=== PATIENT | male | born 1975 | race African-American/Black ===

== ENCOUNTER 2023-09-15 14:11 | Observation (INO) | payer OTHER, SELFPAY ==
[2023-09-15] VITALS (26 sets, daily range): BP systolic 123–135; BP diastolic 76–92; PULSE 60–78; TEMP 36.8–37; O2SAT 67–100; BMI 25.0; BMI 22.9
--- NOTE | 2023-09-15 14:29 | CT_ITS ---
The [address] [address] Patient Name: JAMESON STINSON MRN: [id number] date: 1975 Sex: M Assigned Patient Location: ER Current Patient Location: ER Accession/Order Number: [id number] Exam Date: 09/15/2023 14:55 Report Date: 09/15/2023 15:24 At the request of: ROLANDO JOHNS Procedure: CT stroke head/brain wo con EXAMINATION: CT stroke head/brain wo con HISTORY: Headache, confusion COMPARISON: 06/18/2022 TECHNIQUE: Axial CT images were obtained without IV contrast. Dose reduction techniques were achieved by using automated exposure control and/or adjustment of mA and/or kV according to patient size and/or use of iterative reconstruction technique. FINDINGS: BRAIN: Diffuse supratentorial atrophy. Remote left frontal infarct with encephalomalacia best seen on axial image #19. No new parenchymal hemorrhage, mass or attenuation abnormality. CSF SPACES: No hydrocephalus, subarachnoid hemorrhage, or mass. Appropriate for age. SKULL: No fracture, mass, or other significant visible lesion. SINUSES: No significant mucosal thickening or fluid on the limited views. ORBITS: No appreciable abnormality on the limited views. OTHER: Findings relayed to emergency room at 3:[address]/CT stroke head/brain wo con IMPRESSION: No acute intracranial abnormality Electronically authenticated by: ARIANA WILCOX Date: 09/15/2023 15:24
--- NOTE | 2023-09-15 14:30 | ECG_ITS ---
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
[2023-09-15 14:36] LABS: Glucometer 108 mg/dL (74-106)
--- NOTE | 2023-09-15 14:41 | ED_ITS ---
HPI HPI - General Adult General Chief complaint: Neuro Symptoms/Deficit Stated complaint: HEADACHE, CONFUSED/ CVA SYMPTOMS Time Seen by Provider: 09/15/23 14:14 Source: patient Mode of arrival: walk-in Limitations: no limitations History of Present Illness HPI narrative: Patient is a 48-year-old male with a history of hypertension who presents to the emergency department for the evaluation of a frontal headache associated with feeling confused and shaky since yesterday. He states his symptoms improved but returned again today. He states today he has noticed floaters in his vision bi laterally. He continues to have a headache. He feels numbness and tingling in all of his extremities, he states this has been present for the last year but seems to be worse today. He states he had a stroke about 1 year ago and was hospitalized at this facility. Related Data Home Medications ?Medication ?Instructions ?Recorded ?Confirmed amlodipine 5 mg tablet 5 mg PO DAILY 09/15/23 09/15/23 carvedilol 12.5 mg tablet 12.5 mg PO DAILY 09/15/23 09/15/23 Allergies Allergy/AdvReac Type Severity Reaction Status Date / Time No Known Drug Allergies Allergy Verified 09/15/23 14:26 Opioid HPI Opioid Management Most Recent Opioid Data: No Data to Display Exam Constitutional Vital Signs, click to edit/add: Last Vital Signs Temp 98.6 F 09/15/23 14:27 Pulse 66 09/15/23 15:22 Resp 12 09/15/23 15:22 BP 128/87 09/15/23 15:22 Pulse Ox 98 09/15/23 15:22 Course Vital Signs Vital signs: Vital Signs Blood Pressure 126/88 09/15/23 14:26 Temperature 98.6 F 09/15/23 14:27 Pulse Rate 66 09/15/23 15:22 Respiratory Rate 12 09/15/23 15:22 Blood Pressure 128/87 09/15/23 15:22 Pulse Oximetry 98 09/15/23 15:22 Medical Decision Making [facility] Narrative Medical decision making narrative: Patient treated with IV fluids in the ER, he was found to be intoxicated with an ethanol of 99, elevated lactic acid. The remainder of his labs are unremarkable. He was sent for stroke protocol noncontrast CT of the brain as well as CT angio of the head and neck and the studies are unremarkable as well. Blood pressure and vital signs remained stable in the ER. Patient has no complaints of chest pain or shortness of breath. He does have slow speech but no other focal neurodeficits. I discussed the case with Enrique Rivera stroke interventionalists, no indication for any acute transfer to a higher level of care at this time. Patient admitted to hospitalist service for further evaluation and treatment. SUPERVISED APC VISIT, PHYSICIAN ATTESTATION: Based on the medical record the care appears appropriate. ? Medical Records Medical records reviewed: Yes I reviewed the patient's medical records Lab Data Lab results reviewed: Yes I reviewed the patient's lab results Labs: Lab Results 09/15/23 09/15/23 Range/Units 14:34 14:36 WBC 4.9 (4.0-11.0) 10^3/uL RBC 4.46 L (4.70-6.10) 10^6/uL Hgb 14.4 (14.0-18.0) g/dL Hct 41.3 L (42.0-54.0) % MCV 92.6 (80.0-94.0) fL MCH 32.3 (25.9-34.0) pg MCHC 34.9 (29.9-35.2) g/dL RDW 13.2 (11.0-15.0) % Plt Count 351 (150-450) 10^3/uL MPV 8.7 L (9.5-13.5) fL Neut % (Auto) 42.2 L (43.0-75.0) % Lymph % (Auto) 49.5 (20.5-60.0) % [place] % (Auto) 6.7 (1.7-12.0) % Eos % (Auto) 0.6 L (0.9-7.0) % Baso % (Auto) 0.8 (0.2-2.0) % Neut # (Auto) 2.1 (1.4-6.5) 10^3/uL Lymph # (Auto) 2.4 (1.2-3.8) 10^3/uL [place] # (Auto) 0.3 (0.3-0.8) 10^3/uL Eos # (Auto) 0.0 (0.0-0.7) 10^3/uL Baso # (Auto) 0.0 (0.0-0.1) 10^3/uL Abs Immat Gran (auto) 0.01 (0.00-0.03) 10^3/uL Imm/Tot Granulo (auto) 0.2 (0.0-0.5) % ESR 1 (<=15) mm/hr PT 14.0 H (9.0-11.6) sec INR 1.36 Sodium 139 (136-145) mmol/L Potassium 3.5 (3.5-5.1) mmol/L Chloride 105 (98-107) mmol/L Carbon Dioxide 24.3 (21.0-32.0) mmol/L Anion Gap 13.2 BUN 10.0 (7.0-18.0) mg/dL Creatinine 0.77 (0.70-1.30) mg/dL Est GFR ( Amer) >60 (>=60) Est GFR (Non-Af Amer) >60 (>=60) BUN/Creatinine Ratio 13.0 Glucose 100 (74-106) mg/dL Lactate 2.6 H* (0.4-2.0) mmol/L Calcium 8.2 L (8.5-10.1) mg/dL Magnesium 1.8 (1.8-2.4) mg/dL Total Bilirubin 0.5 (0.2-1.0) mg/dL AST 46 H (15-37) U/L ALT 38 (16-63) U/L Alkaline Phosphatase 77 (46-116) U/L Troponin I High Sens 4.5 (4.0-76.1) pg/mL C-Reactive Protein <0.50 (<=0.50) mg/dL Total Protein 6.6 (6.4-8.2) g/dL Albumin 3.0 L (3.4-5.0) g/dL Globulin 3.6 g/dL Albumin/Globulin Ratio 0.8 TSH 0.977 (0.358-3.740) uIU/mL Ethanol Quant 99 mg/dL POC Glucose 108 H (74-106) mg/dL Imaging Data CT scan - head: Attestation: I have reviewed the pertinent imaging results. Radiologist's impression: ITS Impressions Brain CT 09/15/23 14:29 IMPRESSION: No acute intracranial abnormality Electronically authenticated by: ARIANA WILCOX Date: 09/15/2023 15:24 Head CTA 09/15/23 15:05 IMPRESSION: No high-grade or hemodynamically flow-limiting stenosis of the major arteries of the head and neck. Electronically authenticated by: JOSEPH MARTINEZ Date: 09/15/2023 16:00 Neck CTA 09/15/23 15:05 IMPRESSION: No high-grade or hemodynamically flow-limiting stenosis of the major arteries of the head and neck. Electronically authenticated by: JOSEPH MARTINEZ Date: 09/15/2023 16:00 ECG Data Attestation: I personally reviewed and interpreted this ECG as follows: (Normal sinus rhythm at a rate of 78, no acute ST elevation, no ectopy. EKG reviewed by attending physician) Discharge Plan Discharge Chief Complaint: Neuro Symptoms/Deficit Patient Disposition: Admitted as Observation Time of Disposition Decision: 16:39 Prescriptions / Home Meds: No Action carvedilol 12.5 mg tablet 12.5 mg PO DAILY amlodipine 5 mg tablet 5 mg PO DAILY Print Language: Yemeni Referrals: Physician,Non-Staff, MD [Primary Care Provider] - 1 week
[2023-09-15 14:42] LABS: Basophils Percent Auto 0.8 % (0.2-2.0); Eosinophils Percent Auto 0.6 % (0.9-7.0); Hematocrit 41.3 % (42.0-54.0); Hemoglobin 14.4 g/dL (14.0-18.0); Immature Granulocytes Abs Auto 0.01 10^3/uL (0.00-0.03); Immature Granulocytes Pct Auto 0.2 % (0.0-0.5); Lymphocytes Absolute Auto 2.4 10^3/uL (1.2-3.8); Lymphocytes Percent Auto 49.5 % (20.5-60.0); Mean Corpuscular HGB Conc 34.9 g/dL (29.9-35.2); Mean Corpuscular Hemoglobin 32.3 pg (25.9-34.0); Mean Corpuscular Volume 92.6 fL (80.0-94.0); Mean Platelet Volume 8.7 fL (9.5-13.5); Monocytes Absolute Auto 0.3 10^3/uL (0.3-0.8); Monocytes Percent Auto 6.7 % (1.7-12.0); Neutrophils Absolute Auto 2.1 10^3/uL (1.4-6.5); Neutrophils Percent Auto 42.2 % (43.0-75.0); Platelet Count 351 10^3/uL (150-450); Red Blood Count 4.46 10^6/uL (4.70-6.10); Red Cell Distribution Width 13.2 % (11.0-15.0); White Blood Count 4.9 10^3/uL (4.0-11.0)
[2023-09-15] MEDS: 0.9 % SODIUM CHLORIDE 1,000 ML 999 ML IV (14:46)
[2023-09-15 14:51] LABS: Erythrocyte Sedimentation Rate 1 mm/hr (<=15)
[2023-09-15 14:56] LABS: INR 1.36
--- NOTE | 2023-09-15 15:05 | CT_ITS ---
[address] [address] Patient Name: JAMESON STINSON MRN: [id number] date: 1975 Sex: M Assigned Patient Location: ER Current Patient Location: .[facility] Accession/Order Number: [id number] Exam Date: 09/15/2023 14:55 Report Date: 09/15/2023 16:00 At the request of: ROLANDO JOHNS Procedure: CT angio neck CTA HEAD/NECK. HISTORY: Confusion, headache COMPARISON: None. TECHNIQUE: CT angiogram of the head and neck obtained after administration of 75 mL of nonionic intravenous contrast material, Isovue-300. Multiplanar and volume rendered 3-D reformats were created. NASCET criteria was used for evaluation of luminal stenosis. 3-D vascular images were constructed on a separate workstation. FINDINGS: THORACIC AORTA: Normal. There is a normal anatomy at the origin of the great vessels. RIGHT COMMON CAROTID ARTERY: No significant stenosis. RIGHT EXTERNAL CAROTID ARTERY: No significant stenosis. RIGHT INTERNAL CAROTID ARTERY: No significant stenosis. LEFT COMMON CAROTID ARTERY: No significant stenosis. LEFT EXTERNAL CAROTID ARTERY: No significant stenosis. LEFT INTERNAL CAROTID ARTERY: No significant stenosis. RIGHT VERTEBRAL ARTERY: No significant stenosis. LEFT VERTEBRAL ARTERY: No significant stenosis. [place] OF [place]: The bilateral intracranial internal carotid arteries, anterior cerebral arteries, middle cerebral arteries and anterior and posterior communicating arteries are normal. POSTERIOR INTRACRANIAL CIRCULATION: The basilar artery and posterior cerebral arteries are patent, without stenosis or occlusion. DURAL SINUSES: Patent. No intracranial aneurysm measuring least 2 mm identified. No intracranial AVM. LUNG APICES: The lung apices are clear. SOFT TISSUES: The prevertebral soft tissues are normal. No soft tissue inflammation. There are dilated submandibular gland ducts. No evidence of sialoadenitis. OSSEOUS STRUCTURES: No acute osseous abnormality throughout the imaged axial skeleton and skull base. CT/CT angio neck IMPRESSION: No high-grade or hemodynamically flow-limiting stenosis of the major arteries of the head and neck. Electronically authenticated by: JOSEPH MARTINEZ Date: 09/15/2023 16:00
--- NOTE | 2023-09-15 15:05 | CT_ITS ---
[address] [address] Patient Name: JAMESON STINSON MRN: [id number] date: 1975 Sex: M Assigned Patient Location: ER Current Patient Location: [facility] Accession/Order Number: [id number] Exam Date: 09/15/2023 14:55 Report Date: 09/15/2023 16:00 At the request of: ROLANDO JOHNS Procedure: CT angio head CTA HEAD/NECK. HISTORY: Confusion, headache COMPARISON: None. TECHNIQUE: CT angiogram of the head and neck obtained after administration of 75 mL of nonionic intravenous contrast material, Isovue-300. Multiplanar and volume rendered 3-D reformats were created. NASCET criteria was used for evaluation of luminal stenosis. 3-D vascular images were constructed on a separate workstation. FINDINGS: THORACIC AORTA: Normal. There is a normal anatomy at the origin of the great vessels. RIGHT COMMON CAROTID ARTERY: No significant stenosis. RIGHT EXTERNAL CAROTID ARTERY: No significant stenosis. RIGHT INTERNAL CAROTID ARTERY: No significant stenosis. LEFT COMMON CAROTID ARTERY: No significant stenosis. LEFT EXTERNAL CAROTID ARTERY: No significant stenosis. LEFT INTERNAL CAROTID ARTERY: No significant stenosis. RIGHT VERTEBRAL ARTERY: No significant stenosis. LEFT VERTEBRAL ARTERY: No significant stenosis. [place] OF [place]: The bilateral intracranial internal carotid arteries, anterior cerebral arteries, middle cerebral arteries and anterior and posterior communicating arteries are normal. POSTERIOR INTRACRANIAL CIRCULATION: The basilar artery and posterior cerebral arteries are patent, without stenosis or occlusion. DURAL SINUSES: Patent. No intracranial aneurysm measuring least 2 mm identified. No intracranial AVM. LUNG APICES: The lung apices are clear. SOFT TISSUES: The prevertebral soft tissues are normal. No soft tissue inflammation. There are dilated submandibular gland ducts. No evidence of sialoadenitis. OSSEOUS STRUCTURES: No acute osseous abnormality throughout the imaged axial skeleton and skull base. CT/CT angio head IMPRESSION: No high-grade or hemodynamically flow-limiting stenosis of the major arteries of the head and neck. Electronically authenticated by: JOSEPH MARTINEZ Date: 09/15/2023 16:00
[2023-09-15 15:11] LABS: Magnesium 1.8 mg/dL (1.8-2.4)
[2023-09-15 15:13] LABS: Alanine Aminotransferase 38 U/L (16-63); Albumin Globulin Ratio 0.8; Alkaline Phosphatase 77 U/L (46-116); Anion Gap 13.2; Aspartate Amino Transferase 46 U/L (15-37); Bilirubin Total 0.5 mg/dL (0.2-1.0); Calcium 8.2 mg/dL (8.5-10.1); Carbon Dioxide 24.3 mmol/L (21.0-32.0); Chloride 105 mmol/L (98-107); Estimated GFR (African America >60 (>=60); Estimated GFR (Non-African Ame >60 (>=60); Ethanol 99 mg/dL; Globulin 3.6 g/dL; Glucose 100 mg/dL (74-106); Potassium 3.5 mmol/L (3.5-5.1); Sodium 139 mmol/L (136-145); Total Protein 6.6 g/dL (6.4-8.2)
[2023-09-15 15:21] LABS: Thyroid Stimulating Hormone 0.977 uIU/mL (0.358-3.740); Troponin I High Sensitivity 4.5 pg/mL (4.0-76.1)
[2023-09-15 15:37] LABS: C Reactive Protein <0.50 mg/dL (<=0.50)
[2023-09-15 15:44] LABS: Lactate/Lactic Acid 2.6 mmol/L (0.4-2.0)
[2023-09-15 16:30] LABS: Bilirubin Urine NEGATIVE (NEGATIVE); Blood Urine NEGATIVE (NEGATIVE); Clarity Urine CLEAR (CLEAR); Color Urine LT. YELLOW (YELLOW); Glucose Urine UA NEGATIVE (NEGATIVE); Ketones Urine NEGATIVE (NEGATIVE); Leukocyte Esterase Urine NEGATIVE (NEGATIVE); Nitrite Urine NEGATIVE (NEGATIVE); Protein Urine NEGATIVE (NEG/TRACE); Specific Gravity Urine <=1.005 (1.005-1.025); Urobilinogen Urine 0.2 EU/dL (0.2-1.0)
[2023-09-15 16:41] LABS: Urine Microscopic Indicated NO
[2023-09-15 16:42] LABS: Amphetamine Screen Urine NEGATIVE (NEGATIVE); Barbiturates Screen Urine NEGATIVE (NEGATIVE); Benzodiazepines Screen Urine NEGATIVE (NEGATIVE); Buprenorphine Screen Urine NEGATIVE (NEGATIVE); Cannabinoid Screen Urine POSITIVE (NEGATIVE); Cocaine Screen Urine NEGATIVE (NEGATIVE); Methadone Screen Urine NEGATIVE (NEGATIVE); Methamphetamines Screen Urine NEGATIVE (NEGATIVE); Opiate Screen Urine NEGATIVE (NEGATIVE); Oxycodone Screen Urine NEGATIVE (NEGATIVE); Phencyclidine Screen Urine NEGATIVE (NEGATIVE); Tricyclic Antidepressant Urine NEGATIVE (NEGATIVE)
--- NOTE | 2023-09-15 18:05 | P.HP_ITS ---
HPI H&P: HPI History of Present Illness Chief complaint: HEADACHE, CONFUSED Narrative: Patient with a history of CVA, he has been off his Plavix and aspirin Díaz combination for some time, only taking aspirin intermittently currently, presented to the emergency room with about a 12-hour history of mostly just confusion and difficulty concentrating. He had tingling in his upper and lower extremities has been progressive but that is not new for him he had that over a year. He had no focal neurological changes, denies weakness in the upper or lower extremities. When I saw patient up on the medical surgical floor, he was resting comfortably in bed without complaint, no difficulties with his speech, he does state he still does not feel quite right, not back to baseline. Opioid HPI Opioid Management Most Recent Pain and Opioid Data: Last Pain Assessment 09/15/23 18:07 Last ORT Total Score 3 09/15/23 17:57 Last ORT Risk Category Low Risk 09/15/23 17:57 Ur Phencyclidine Scrn Negative (NEGATIVE) 09/15/23 16:07 Review of Systems ROS Status of ROS 10 or more systems reviewed and unremark able except as noted in history and below PFSH PFS Social History Highest level of school completed/degree received: high school graduate Do you think of yourself as: straight/heterosexual Gender Identity: male Meds Home Medications and Allergies Home Medications ?Medication ?Instructions ?Recorded ?Confirmed ?Type amlodipine 5 mg tablet 5 mg PO DAILY 09/15/23 09/15/23 History carvedilol 12.5 mg tablet 12.5 mg PO DAILY 09/15/23 09/15/23 History Allergies Allergy/AdvReac Type Severity Reaction Status Date / Time No Known Drug Allergies Allergy Verified 09/15/23 14:26 Exam Constitutional Vital Signs, click to edit/add: Last Vital Signs Temp 98.3 F 09/15/23 17:51 Pulse 67 09/15/23 17:51 Resp 16 09/15/23 17:51 BP 129/84 09/15/23 17:51 Pulse Ox 92 L 09/15/23 17:51 O2 Del Method Room Air 09/15/23 17:51 Documenting provider has reviewed patient's vital signs: yes Common normals: no apparent distress Chest Common normals: inspection of chest normal Respiratory Common normals: normal respiratory effort and no retractions Cardio Common normals: regular rate, regular rhythm and no murmurs GI Common normals: Normal to inspection, nondistended, normoactive bowel sounds present and soft to palpation Neuro Common normals: oriented x3, CN's II-XII intact bilaterally, moves all extremities and no focal motor deficits; sensory deficits (Increased sensation in his hands bilaterally and feet bilaterally) Results Labs Labs: Short CBC 09/15/23 Range/Units 14:36 WBC 4.9 (4.0-11.0) 10^3/uL Hgb 14.4 (14.0-18.0) g/dL Hct 41.3 L (42.0-54.0) % Plt Count 351 (150-450) 10^3/uL BMP 09/15/23 14:36 Sodium 139 Potassium 3.5 Chloride 105 Carbon Dioxide 24.3 BUN 10.0 Creatinine 0.77 Glucose 100 Calcium 8.2 L Liver Function 09/15/23 Range/Units 14:36 Total Bilirubin 0.5 (0.2-1.0) mg/dL AST 46 H (15-37) U/L ALT 38 (16-63) U/L Alkaline Phosphatase 77 (46-116) U/L Albumin 3.0 L (3.4-5.0) g/dL Urine 09/15/23 Range/Units 16:07 Urine Color Lt. yellow (YELLOW) Urine Clarity Clear (CLEAR) Urine pH 6.0 (5.0-9.0) Ur Specific [place] <=1.005 A (1.005-1.025) Urine Protein Negative (NEG/TRACE) mg/dL Urine Glucose (UA) Negative (NEGATIVE) mg/dL Assessment and Plan Assessment and Plan (1) Headache: (2) Acute confusion: Plan Altered mental status without focal neurological deficits, workup in ER significant only for positive lactate. No infection symptoms currently. Could still be related to more of a sinus infection. Does not feel like he had when he had his previous stroke., Place patient on telemetry, consider for more intensive scans in the a.m. but so far CTA head and neck were normal. Hypertension by history-continue home medications Mild protein calorie malnutrition-diet management Although patient denies alcohol abuse, he did present here intoxicated-CIWA scale. Admission status: With no further local neurological deficits, will restart Plavix, medically necessary treatment likely to span only 1 midnight. Observation status.
[2023-09-15] MEDS: ASPIRIN 81 MG TABLET.DR PO (18:55)
[2023-09-15] MEDS: LACTATED RINGER'S SOLUTION 1,000 ML 100 ML IV (18:56)
[2023-09-16 00:46] VITALS: BP 125/81; PULSE 78; TEMP 36.6; O2SAT 94
[2023-09-16 04:00] VITALS: BP 136/86; PULSE 660; TEMP 36.8; O2SAT 93
[2023-09-16] MEDS: LACTATED RINGER'S SOLUTION 1,000 ML 100 ML IV (04:37)
[2023-09-16 06:04] VITALS: BP 129/84; O2SAT 67
[2023-09-16 06:11] LABS: Basophils Percent Auto 0.4 % (0.2-2.0); Eosinophils Percent Auto 0.6 % (0.9-7.0); Hematocrit 39.6 % (42.0-54.0); Hemoglobin 13.4 g/dL (14.0-18.0); Immature Granulocytes Abs Auto 0.01 10^3/uL (0.00-0.03); Immature Granulocytes Pct Auto 0.1 % (0.0-0.5); Lymphocytes Absolute Auto 2.7 10^3/uL (1.2-3.8); Lymphocytes Percent Auto 38.9 % (20.5-60.0); Mean Corpuscular HGB Conc 33.8 g/dL (29.9-35.2); Mean Corpuscular Hemoglobin 31.5 pg (25.9-34.0); Mean Corpuscular Volume 93.2 fL (80.0-94.0); Mean Platelet Volume 9.5 fL (9.5-13.5); Monocytes Absolute Auto 0.5 10^3/uL (0.3-0.8); Monocytes Percent Auto 7.4 % (1.7-12.0); Neutrophils Absolute Auto 3.7 10^3/uL (1.4-6.5); Neutrophils Percent Auto 52.6 % (43.0-75.0); Platelet Count 325 10^3/uL (150-450); Red Blood Count 4.25 10^6/uL (4.70-6.10)
[2023-09-16 06:29] LABS: Alanine Aminotransferase 56 U/L (16-63); Albumin Globulin Ratio 0.8; Albumin Level 2.8 g/dL (3.4-5.0); Alkaline Phosphatase 73 U/L (46-116); Anion Gap 10.5; Aspartate Amino Transferase 141 U/L (15-37); BUN Creatinine Ratio 4.8; Bilirubin Total 0.7 mg/dL (0.2-1.0); Calcium 8.1 mg/dL (8.5-10.1); Carbon Dioxide 25.8 mmol/L (21.0-32.0); Chloride 103 mmol/L (98-107); Estimated GFR (African America >60 (>=60); Estimated GFR (Non-African Ame >60 (>=60); Globulin 3.3 g/dL; Glucose 82 mg/dL (74-106); Potassium 3.3 mmol/L (3.5-5.1); Sodium 136 mmol/L (136-145); Total Protein 6.1 g/dL (6.4-8.2)
[2023-09-16 08:00] VITALS: BP 129/84; PULSE 63; PULSE 67; TEMP 36.8; O2SAT 95
--- NOTE | 2023-09-16 08:47 | CM.NOTE ---
Rounds made with Dr. Moy. Plan for discharge today. Follow up with PCP in one week. Verbalizes understanding.
--- NOTE | 2023-09-16 09:04 | P.DS_ITS ---
DS: Providers Provider Date of admission: 09/15/23 17:18 Primary care physician: Non-Staff Physician, Consults: 09/15/23 16:26 Consult to Telestroke Routine Reason for consultation: Headache, confusion DS: Diagnosis Discharge Diagnosis (1) Headache: (2) Acute confusion: Plan Altered mental status without focal neurological deficits, workup in ER significant only for positive lactate. No infection symptoms currently. Could still be related to more of a sinus infection. Does not feel like he had when he had his previous stroke., Place patient on telemetry, consider for more intensive scans in the a.m. improving at the time of discharge Hypertension by history-continue home medications Mild protein calorie malnutrition-diet management Although patient denies alcohol abuse, he did present here intoxicated-CIWA scale. Admission status: With no further local neurological deficits, will restart Plavix, medically necessary treatment likely to span only 1 midnight. Observation status. ? DS: Summary Hospital Course Hospital Course: Patient presented to the emergency room with alteration mental status, just hard to focus, he is used to dealing with numbers on a daily basis and was having a hard time concentrating on that. No focal neurological deficits. Patient also had a headache. Workup in ER unremarkable. Patient was observed overnight. He is improved this morning, alcohol is worn off, still has a headache but much improved, at this point he is back to his baseline other than the mild headache, encouraged him to abstain from all alcohol, try to start patient on Plavix but patient refused, with the alteration mental status cannot say was not a TIA, already on aspirin, recommended the Plavix, he wants to discuss it with his PCP prior to starting. Medications see list. Follow-up with PCP within the next week. Status at Discharge Overall status at discharge: patient is back to baseline Time Spent with Patient Time attestation: Total time spent providing and/or coordinating discharge services: Time spent: greater than 30 minutes Exam Constitutional Vital Signs, click to edit/add: Last Vital Signs Temp 98.2 F 09/16/23 04:00 Pulse 660 H 09/16/23 04:00 Resp 16 09/16/23 04:00 BP 129/84 09/16/23 06:04 Pulse Ox 93 L 09/16/23 04:00 O2 Del Method Room Air 09/16/23 04:00 Documenting provider has reviewed patient's vital signs: yes Common normals: no apparent distress Chest Common normals: inspection of chest normal Respiratory Common normals: normal respiratory effort and no retractions Cardio Common normals: regular rate, regular rhythm and no murmurs GI Common normals: Normal to inspection, nondistended, normoactive bowel sounds present and soft to palpation Neuro Common normals: oriented x3, CN's II-XII intact bilaterally, moves all extremities and no focal motor deficits; sensory deficits (Increased sensation in his hands bilaterally and feet bilaterally) DS: Data Data Completed and Pending Labs on day of discharge: Labs from last 24 hours 09/16/23 09/15/23 09/15/23 04:49 16:07 14:36 WBC 7.0 4.9 RBC 4.25 L 4.46 L Hgb 13.4 L 14.4 Hct 39.6 L 41.3 L MCV 93.2 92.6 MCH 31.5 32.3 MCHC 33.8 34.9 RDW 13.0 13.2 Plt Count 325 351 MPV 9.5 8.7 L Neut % (Auto) 52.6 42.2 L Lymph % (Auto) 38.9 49.5 [place] % (Auto) 7.4 6.7 Eos % (Auto) 0.6 L 0.6 L Baso % (Auto) 0.4 0.8 Neut # (Auto) 3.7 2.1 Lymph # (Auto) 2.7 2.4 [place] # (Auto) 0.5 0.3 Eos # (Auto) 0.0 0.0 Baso # (Auto) 0.0 0.0 Abs Immat Gran (auto) 0.01 0.01 Imm/Tot Granulo (auto) 0.1 0.2 ESR 1 PT 14.0 H INR 1.36 Sodium 136 139 Potassium 3.3 L 3.5 Chloride 103 105 Carbon Dioxide 25.8 24.3 Anion Gap 10.5 13.2 BUN 4.0 L 10.0 Creatinine 0.83 0.77 Est GFR ( Amer) >60 >60 Est GFR (Non-Af Amer) >60 >60 BUN/Creatinine Ratio 4.8 13.0 Glucose 82 100 Lactate 2.6 H* Calcium 8.1 L 8.2 L Magnesium 1.8 Total Bilirubin 0.7 0.5 AST 141 H 46 H ALT 56 38 Alkaline Phosphatase 73 77 Troponin I High Sens 4.5 C-Reactive Protein <0.50 Total Protein 6.1 L 6.6 Albumin 2.8 L 3.0 L Globulin 3.3 3.6 Albumin/Globulin Ratio 0.8 0.8 TSH 0.977 Urine Color Lt. yellow Urine Clarity Clear Urine pH 6.0 Ur Specific [place] <=1.005 A Urine Protein Negative Urine Glucose (UA) Negative Urine Ketones Negative Urine Occult Blood Negative Urine Nitrite Negative Urine Bilirubin Negative Urine Urobilinogen 0.2 Ur Leukocyte Esterase Negative Urine Opiates Screen Negative Ur Buprenorphine Scrn Negative Ur Oxycodone Screen Negative Urine Methadone Screen Negative Ur Barbiturates Screen Negative U Tricyclic Antidepress Negative Ur Phencyclidine Scrn Negative Ur Amphetamines Screen Negative U Methamphetamines Scrn Negative U Benzodiazepines Scrn Negative Urine Cocaine Screen Negative U Cannabinoids Screen Positive A Ethanol Quant 99 POC Glucose 09/15/23 14:34 WBC RBC Hgb Hct MCV MCH MCHC RDW Plt Count MPV Neut % (Auto) Lymph % (Auto) [place] % (Auto) Eos % (Auto) Baso % (Auto) Neut # (Auto) Lymph # (Auto) [place] # (Auto) Eos # (Auto) Baso # (Auto) Abs Immat Gran (auto) Imm/Tot Granulo (auto) ESR PT INR Sodium Potassium Chloride Carbon Dioxide Anion Gap BUN Creatinine Est GFR ( Amer) Est GFR (Non-Af Amer) BUN/Creatinine Ratio Glucose Lactate Calcium Magnesium Total Bilirubin AST ALT Alkaline Phosphatase Troponin I High Sens C-Reactive Protein Total Protein Albumin Globulin Albumin/Globulin Ratio TSH Urine Color Urine Clarity Urine pH Ur Specific [place] Urine Protein Urine Glucose (UA) Urine Ketones Urine Occult Blood Urine Nitrite Urine Bilirubin Urine Urobilinogen Ur Leukocyte Esterase Urine Opiates Screen Ur Buprenorphine Scrn Ur Oxycodone Screen Urine Methadone Screen Ur Barbiturates Screen U Tricyclic Antidepress Ur Phencyclidine Scrn Ur Amphetamines Screen U Methamphetamines Scrn U Benzodiazepines Scrn Urine Cocaine Screen U Cannabinoids Screen Ethanol Quant POC Glucose 108 H Discharge Plan Discharge Disposition: Home, Self-Care Condition: Good Discharge Medications: New aspirin 81 mg Tablet,Delayed Release (Dr/Ec) 81 mg PO QD Qty: 30 11RF Continued carvedilol 12.5 mg tablet 12.5 mg PO DAILY amlodipine 5 mg tablet 5 mg PO DAILY Activity: increase activity as tolerated Diet: advance to your usual diet Print Language: Chinese Patient Instructions: Aspirin (By mouth), At-Risk Alcohol Use (ED) Forms: Portal Instructions Follow Up Appointments: September 16 @ 3PM with Roberta Fontana NP [facility] [phone]
[2023-09-16 09:11] VITALS: BP 129/84
[2023-09-16] MEDS: AMLODIPINE BESYLATE 5 MG TABLET PO (09:11)
[2023-09-16] MEDS: ASPIRIN 81 MG TABLET.DR PO (09:13)
[2023-09-16] MEDS: CARVEDILOL 12.5 MG TABLET PO (09:13)
--- NOTE | 2023-09-17 11:42 | CM.DCFOLLOWU ---
Person spoke with: patient How are you feeling? well How is your pain? none Did you understand your discharge instructions? yes Do you have any questions about your discharge instructions? no Were you given any prescriptions at discharge? yes Were you able to get your prescriptions filled? 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 yes Do you have any questions about your follow up appointment and do you plan to keep your follow up appointment? no questions, had follow up apt today Is there anything else that you would like to discuss? no Questions/Comments/Concerns/Other: none
== END 2023-09-16 10:13 | disposition home or self-care (01) ==
LOC: ER 16:45 → MS 17:22
PROVIDERS: Physician Assistant; Admitting Provider Family Medicine; Emergency Provider Student in an Organized Health Care Education/Training Program; Visit Provider Family Medicine
DX: R41.82 Altered mental status, unspecified (principal); R51.9 Headache, unspecified; I10 Essential (primary) hypertension; E44.1 Mild protein-calorie malnutrition; E87.20 Acidosis, unspecified; Y90.4 Blood alcohol level of 80-99 mg/100 ml; F10.129 Alcohol abuse with intoxication, unspecified; Z86.73 Personal history of transient ischemic attack (TIA), and cerebral infarction without residual deficits; Z79.82 Long term (current) use of aspirin; Z68.22 Body mass index [BMI] 22.0-22.9, adult
CPT/HCPCS: 36415; 70450; 70496; 70498; 80053; 80307; 80320; 81003; 83605; 83735; 84443; 84484; 85025; 85610; 85652; 86140; 93005; 94761; 96360; 96361; 99285; G0378; Q9967